=== PATIENT | male | born 1965 | race Caucasian/White ===

== ENCOUNTER 2019-03-07 13:01 | Emergency (ER) | payer SELFPAY | END 2019-03-07 13:56 | disposition home or self-care (01) | LOC: MADERS 13:01 | DX: F32.9 Major depressive disorder, single episode, unspecified (principal); F41.9 Anxiety disorder, unspecified; F17.210 Nicotine dependence, cigarettes, uncomplicated; Z76.0 Encounter for issue of repeat prescription; Z79.899 Other long term (current) drug therapy | CPT/HCPCS: 99283 ==